=== PATIENT | female | born 1985 | race Caucasian/White ===

== ENCOUNTER 2021-12-12 17:13 | Emergency (ER) | payer OTHER ==
[~2021-12-12] VITALS: Ht 165.1 cm; Wt 97.5 kg
[2021-12-12 17:30] VITALS: BP_SYST 145
--- NOTE | 2021-12-12 17:30 | NUR ---
PT TRIAGED AND PLACED IN LOBBY FOR AVAILABLE BED IN MAIN ED
--- NOTE | 2021-12-12 17:34 | NUR ---
PT BIB FROM HOME C/O RIGHT ANKLE PAIN, STATES SHE WAS SITTING ON HER FOOT AND IT "FELL ASLEEP", SHE WENT TO STAND QUICKILY AND PUT PRESSURE AND ROLLED ANKLE, HEARD POP. SWELLING TO SIDE OF RIGHT ANKLE AND PAIN WITH PRESSURE. PT IS AAOX4, VSS
--- NOTE | 2021-12-12 18:30 | NUR ---
Patient to ER bed 7 to gown for evaluation. Side rails up. Report given to NEL GIRON.
--- NOTE | 2021-12-12 19:04 | NUR ---
Report given to Stella NEUMANN to assume care of patient
[2021-12-12] MEDS ORDERED: IBUP-1969 PO (19:12)
[2021-12-12] MEDS ORDERED: IBUPROFEN 600 MG TABLET PO ONE (19:15)
--- NOTE | 2021-12-12 19:56 | NUR ---
SHORT LEG POSTERIOR SPLINT DONE BY RN.
--- NOTE | 2021-12-12 20:12 | NUR ---
DC INSTRUCTIONS AND CRUTCHES GIVEN TO PT.
--- NOTE | 2021-12-12 20:13 | NUR ---
Patient given written and verbal discharge instructions and verbalizes understanding. ER MD discussed with patient the results and treatment provided. Patient in stable condition. Rx of MOTRIN given. Patient educated on pain management and to follow up with PMD. Pain Scale 5. Opportunity for questions provided and answered.
[2021-12-12 20:14] VITALS: BP_SYST 145
== END 2021-12-12 20:14 | disposition home or self-care (01) ==
LOC: SED 17:13
DX: S93.401A Sprain of unspecified ligament of right ankle, initial encounter (principal); Z88.0 Allergy status to penicillin; Z88.2 Allergy status to sulfonamides; X50.1XXA Overexertion from prolonged static or awkward postures, initial encounter; Y93.89 Activity, other specified; Y92.89 Other specified places as the place of occurrence of the external cause; Y99.8 Other external cause status
CPT/HCPCS: 99283